=== PATIENT | male | born 1970 | race American Indian/Alaskan Native ===

== ENCOUNTER 2017-03-15 11:13 | Outpatient (CLI) | payer OTHER ==
--- NOTE | 2017-03-15 11:47 | XRay Report ---
Lumbar spine 3 views: History: Back problem. Neck problem. Numbness right hand. Findings: Normal height of vertebral bodies and intervertebral disc normal articular surfaces. No fracture. No paravertebral mass. Impression: No bony or articular abnormality lumbar spine.
== END 2017-03-15 11:14 | disposition home or self-care (01) ==
LOC: XRAY 11:13
PROVIDERS: ATTEND Internal Medicine
DX: M54.5 Low back pain (principal); M54.2 Cervicalgia; M79.604 Pain in right leg; F17.200 Nicotine dependence, unspecified, uncomplicated
CPT/HCPCS: 72100